=== PATIENT | female | born 1980 | race Caucasian/White ===

== ENCOUNTER 2024-08-08 12:29 | Emergency (ER) | payer OTHER ==
[2024-08-08 12:51] VITALS: BP 134/63; PULSE 69; RESP 18; TEMP 98.1; BMI 46.9
[2024-08-08] MEDS ORDERED: IBUPROFEN 600 MG TABLET (FP) PO ONE (15:01)
[2024-08-08] MEDS: IBUPROFEN 600 MG TABLET (FP) PO ONE (15:02)
== END 2024-08-08 16:25 | disposition home or self-care (01) ==
LOC: FER 12:29
PROC: 2W3MX1Z Immobilization of Left Lower Extremity using Splint (ICD-10-PCS; principal; 2024-08-08)
DX: S82.492A Other fracture of shaft of left fibula, initial encounter for closed fracture (principal); W10.8XXA Fall (on) (from) other stairs and steps, initial encounter
CPT/HCPCS: 73560-TC-LT-FY; 73610-TC-LT-FY; 73630-TC-LT; 99283-25